=== PATIENT | female | born 2000 | race Hispanic/Latino ===

== ENCOUNTER 2021-04-03 23:42 | Emergency (ER) | payer BC ==
[~2021-04-03] VITALS: Ht 165.1 cm; Wt 50.8 kg
[2021-04-04] MEDS ORDERED: MAG/ALUM/SIMETH 30 ML UDCUP PO ONE (00:30)
[2021-04-04] MEDS ORDERED: 0.9%NACL 1000ML 1,710 ML IV ONE (00:30)
[2021-04-04] MEDS ORDERED: LIDOCAINE HCL 2% VISCOUS 15 ML UDCUP PO ONE (00:30)
[2021-04-04] MEDS ORDERED: KETOROLAC 30MG VIAL (30MG/ML) IV ONE (00:30)
[2021-04-04] MEDS ORDERED: MAG/ALUM/SIMETH 30 ML UDCUP ONE (00:36)
[2021-04-04] MEDS ORDERED: LIDOCAINE HCL 2% VISCOUS 15 ML UDCUP ONE (00:36)
[2021-04-04] MEDS ORDERED: KETOROLAC 30MG VIAL (30MG/ML) ONE (00:36)
[2021-04-04] MEDS ORDERED: 0.9%NACL 1000ML 1,000 ML IV ONE ×2 (00:38→03:30)
[2021-04-04 00:48] LABS: BASOPHILS % (AUTO) 0.3 % (0.0-5.0); HEMATOCRIT 35.6 % (36-48); MEAN CORPUSCULAR HGB CONC 32.6 g/dL (32.0-36.0); MEAN CORPUSCULAR VOLUME 82.8 fL (79-99); MONOCYTES % (AUTO) 12.6 % (3.0-13.0); NEUTROPHILS % (AUTO) 57.7 % (40.0-77.0); PLATELET COUNT (AUTO) 262 K/uL (130-400); RED CELL DISTRIBUTION WIDTH 13.2 % (11.0-15.5)
[2021-04-04 00:57] LABS: ALBUMIN 3.7 g/dL (3.5-5.0); BILIRUBIN,TOTAL 0.4 mg/dL (0.2-1.0); CREATININE 0.8 mg/dL (0.5-1.5); TOTAL PROTEIN, SERUM 8.2 g/dL (6.0-8.3)
[2021-04-04 00:59] LABS: POTASSIUM 2.9 mmol/L (3.5-5.1)
[2021-04-04] MEDS ORDERED: KCL 20 MEQ ERTAB PO ONE (01:14)
[2021-04-04] MEDS ORDERED: ACYCLOVIR 500 MG VIAL 500 MG in 0.9%NACL 100ML 100 ML IV ONE (01:30)
[2021-04-04] MEDS ORDERED: ACYCLOVIR 200 MG CAPSULE ONE (02:11)
[2021-04-04] MEDS ORDERED: ACYCLOVIR 200 MG CAPSULE PO SCH (02:30)
[2021-04-04] MEDS ORDERED: CEFTRIAXONE 1G VIAL ONE (03:28)
[2021-04-04] MEDS ORDERED: CEFTRIAXONE 1G VIAL IVP ONE (03:30)
[2021-04-04] MEDS ORDERED: ONDA4TAB10 PO (03:38)
[2021-04-04] MEDS ORDERED: [UNRECOGNIZED DRUG - CODE] PO (03:38)
[2021-04-04] MEDS ORDERED: METO10L PO (03:38)
[2021-04-04 03:47] VITALS: BP 98/48
[2021-04-04] MEDS ORDERED: PHARMACY COMMUNICATION MISC SCH ×2 (04:00)
== END 2021-04-04 04:17 | disposition home or self-care (01) ==
LOC: EDH 23:42
DX: J02.9 Acute pharyngitis, unspecified (principal); E86.0 Dehydration; R23.8 Other skin changes; Z20.822 Contact with and (suspected) exposure to COVID-19; F41.9 Anxiety disorder, unspecified; J45.909 Unspecified asthma, uncomplicated; Z79.1 Long term (current) use of non-steroidal anti-inflammatories (NSAID); Z88.0 Allergy status to penicillin
CPT/HCPCS: 36415 ×2; 70360; 70491; 80053; 81025; 85025; 86308; 87252; 87491; 87591; 87635; 87804 ×2; 96360; 96361; 96374; 96375; 99284 ×2; C9803; J0133; J0696; J1885; J7030 ×3; Q9967

== ENCOUNTER 2021-04-04 10:34 | Emergency (ER) | payer BC ==
[~2021-04-04] VITALS: Ht 162.6 cm; Wt 45.4 kg
[~2021-04-04 10:34] MED LIST: METO10L PO; ONDA4TAB10 PO; [UNRECOGNIZED DRUG - CODE] PO
[2021-04-04] MEDS ORDERED: MAG/ALUM/SIMETH 30 ML UDCUP PO SCH (12:00)
[2021-04-04] MEDS ORDERED: LIDOCAINE HCL 2% VISCOUS 15 ML UDCUP PO SCH (12:00)
[2021-04-04] MEDS ORDERED: LIDOCAINE HCL 2% VISCOUS 15 ML UDCUP ONE (12:02)
[2021-04-04] MEDS ORDERED: MAG/ALUM/SIMETH 30 ML UDCUP ONE (12:02)
[2021-04-04] MEDS ORDERED: 0.9%NACL 1000ML 1,000 ML IV ONE (13:00)
[2021-04-04] MEDS ORDERED: ACETAMINOPHEN 325 MG/10.15ML UDCUP ONE (13:33)
[2021-04-04] MEDS ORDERED: IOHEXOL-350 50ML VIAL IV ONE (14:55)
[2021-04-04 16:13] VITALS: BP 110/57
== END 2021-04-04 16:15 | disposition home or self-care (01) ==
LOC: EDH 10:48
DX: J02.9 Acute pharyngitis, unspecified (principal); J45.909 Unspecified asthma, uncomplicated; F41.9 Anxiety disorder, unspecified; Z88.0 Allergy status to penicillin; Z79.899 Other long term (current) drug therapy
CPT/HCPCS: 36415; 70360; 70491; 81025; 87491; 87591; 96360; 99284; Q9967